=== PATIENT | male | born 1995 | race Caucasian/White ===

== ENCOUNTER → 2019-04-23 | Emergency (ER) | payer OTHER ==
[~2019-04-23] VITALS: Ht 177.8 cm; Wt 68.0 kg
[~2019-04-23] MED LIST: PENICILLIN V P500 MG PO
== END ==
LOC: ED 15:51
DX: S61.211A Laceration without foreign body of left index finger without damage to nail, initial encounter (principal); W22.8XXA Striking against or struck by other objects, initial encounter